=== PATIENT | female | born 1945 | race Caucasian/White ===

== ENCOUNTER 2019-07-09 17:05 | Inpatient (IN) | payer SELFPAY ==
[~2019-07-09] VITALS: Ht 167.6 cm; Wt 60.8 kg
--- NOTE | 2019-07-09 17:05 | NUR ---
Patient to ER bed 7 to gown for evaluation. Side rails up.
[2019-07-09 17:10] VITALS: BP_SYST 113
--- NOTE | 2019-07-09 17:10 | NUR ---
Patient presented to ER C/O diarrhea. Patient A&Ox3, BIB BLS from [facility], skin pink and warm, pain 10/18, denies n/v, PT C/O diarrhea. Patient states she has diarrhea x3 weeks, decreased appetite, chronic back and neck pain and bilat anterior hip pain.
[2019-07-09] MEDS ORDERED: NACL 0.9% 1,000 ML IV ONE (17:11)
--- NOTE | 2019-07-09 17:13 | NUR ---
ER Dr. Pettit at bedside examining patient.
--- NOTE | 2019-07-09 17:25 | NUR ---
# 20 gauge angiocath placed to right arm. Use of asceptic technique. Opsite placed over site. Blood return noted. Blood for lab drawn from site. Flushed with 10 cc of normal saline. No evidence of infiltration noted. Patient tolerated well. Medicated per MD orders. IVF infusing with no s/s of infiltration at this time. Will cont to monitor
--- NOTE | 2019-07-09 17:45 | NUR ---
# 16 FR In and Out catheter with use of sterile technique. Immediate return of ml urine noted. Urine sample collected and sent to lab. Pt tolerated procedure well. Patient unable to toilet self.
[2019-07-09 18:10] LABS: BASOPHILS % (AUTO) 0.2 % (0.0-2.0); EOSINOPHILS % (AUTO) 0.1 % (0.0-4.0); HEMATOCRIT 41.5 % (36-48); LYMPHOCYTES # (AUTO) 0.8 K/uL (1.0-5.5); LYMPHOCYTES % (AUTO) 6.2 % (20.5-51.5); MEAN CORPUSCULAR HEMOGLOBIN 29 pg (27-31); MEAN CORPUSCULAR HGB CONC 34 % (32-36); MEAN CORPUSCULAR VOLUME 86 fL (79.0-98.0); MONOCYTES # (AUTO) 1.7 K/uL (0.0-1.0); MONOCYTES % (AUTO) 13.4 % (1.7-9.3); NEUTROPHILS # (AUTO) 10.2 K/uL (1.8-7.7); NEUTROPHILS % (AUTO) 80.1 % (40.0-70.0); PLATELET COUNT (AUTO) 134 K/uL (130-430); RED CELL DISTRIBUTION WIDTH 14.9 % (9.0-15.0); WHITE BLOOD COUNT (AUTO) 12.7 K/uL (4.8-10.8)
[2019-07-09 18:29] LABS: BLOOD, URINE 2+ (NEGATIVE); COLOR,URINE YELLOW (YELLOW); GLUCOSE,URINE NEGATIVE (NEGATIVE); KETONES,URINE NEGATIVE (NEGATIVE); LEUKOCYTE ESTERASE ,URINE 2+ (NEGATIVE); NITRITE, URINE NEGATIVE (NEGATIVE); PROTEIN URINE 1+ (NEGATIVE)
[2019-07-09 18:33] LABS: BILIRUBIN,URINE NEGATIVE (NEGATIVE); CLARITY/URINE HAZY (CLEAR)
[2019-07-09 18:37] LABS: BACTERIA,URINE MODERATE /HPF (None Seen); MUCUS,URINE None Seen /LPF (None Seen); RBC,URINE 0-3 /HPF (0-3); WBC,URINE 50-80 /HPF (0-3)
[2019-07-09] MEDS ORDERED: cefTRIAXone 1 GM IVPB PREMIX 50 ML IV ONE (18:45)
[2019-07-09 19:09] LABS: ANION GAP 11 (5-15); CALCIUM 7.9 mg/dL (8.4-11.0); CHLORIDE 97 mmol/L (98-107); CREATININE 1.38 mg/dL (0.55-1.30); GLUCOSE 118 mg/dL (70-99); POTASSIUM 4.2 mmol/L (3.5-5.1); SODIUM SERUM 131 mmol/L (136-145); UREA NITROGEN, BLOOD 32 mg/dL (8-21)
--- NOTE | 2019-07-09 19:10 | NUR ---
Report to Abree RN continuity of care
[2019-07-09 19:11] LABS: ALANINE AMINOTRANSFERASE 20 U/L (12-78); ALBUMIN 3.1 g/dL (3.4-4.8); AMYLASE 37 U/L (0-100); ASPARTATE AMINOTRANSFERASE 23 U/L (10-37); LACTATE DEHYDROGENASE 143 U/L (81-234); LIPASE 67 U/L (73-393); TOTAL BILIRUBIN 0.7 mg/dL (0.0-1.0)
[2019-07-09 19:26] LABS: INR 1.3 (0.8-1.2); PROTHROMBIN TIME 13.4 SECS (9.5-12.5)
--- NOTE | 2019-07-09 19:27 | NUR ---
Rocephin IV therapy held until stool sample given. Patient states no urge at the moment.
--- NOTE | 2019-07-09 19:34 | NUR ---
RECEIEVED ADMIT ORDERS FROM DR. CALLEJAS.
[2019-07-09 19:40] LABS: C-REACTIVE PROTEIN QUANT 22.7 mg/dL (0-0.5)
--- NOTE | 2019-07-09 19:43 | NUR ---
Patient's code status is DNR paperwork completed, signed and placed in chart.
--- NOTE | 2019-07-09 20:15 | NUR ---
UPON REASSESSMENT OF PATIENT, SHE IS A&O X4, DENIES PAIN. VITAL SIGNS STABLE.
--- NOTE | 2019-07-09 20:30 | NUR ---
CALLED [facility] TO OBTAIN MED REC FOR PATIENT. PATIENT STATES SHE TAKES 6 MEDICATIONS DAILY BUT IS UNABLE TO RECALL THE NAME OF THE MEDICATIONS. WAITING FOR [facility] TO CALL BACK TO GIVE MED REC.
[2019-07-09] MEDS ORDERED: ONDANSETRON HCL 4 MG/2 ML VIAL IVP PRN (21:00)
[2019-07-09] MEDS ORDERED: HEPARIN SODIUM,PORCINE 5000 UNITS/ML VIAL SUBCUT SCH (21:00)
[2019-07-09] MEDS ORDERED: ACETAMINOPHEN 325 MG TABLET PO PRN (21:00)
[2019-07-09] MEDS: DOCUSATE SODIUM 100 MG CAPSULE PO SCH (21:00)
--- NOTE | 2019-07-09 21:11 | NUR ---
Patient will be admitted to care of DR. CALLEJAS. Admitted to TELE unit. Will go to room 122B. Belongings list completed. Complete and up to date summary report printed. SBAR report to be given at bedside with opportunity for questions.
--- NOTE | 2019-07-09 21:29 | NUR ---
PER MD, ROCEPHIN GIVEN IVPB PRIOR TO COLLECTION OF STOOL CULTURE. PATIENT UNABLE TO HAVE A BOWEL MOVEMENT AT THIS TIME.
[2019-07-09] MEDS ORDERED: METO25TA6 PO (21:30)
--- NOTE | 2019-07-09 21:30 | NUR ---
Medication reconciliation completed with information provided by HR PERSONNEL FROM [facility]. Any prior medication reconciliation on file was reviewed and corrected.
[2019-07-09] MEDS ORDERED: SERT50TA12 PO (21:31)
[2019-07-09] MEDS ORDERED: BENA40TA8 PO (21:31)
[2019-07-09] MEDS ORDERED: RIVA15TA PO (21:31)
[2019-07-09] MEDS ORDERED: DIGO-31 PO (21:32)
--- NOTE | 2019-07-09 21:32 | NUR ---
Transfer to TELE via ACLS protocol. Licensed nurse present. IV present no signs or symptoms of infiltration.
[2019-07-09 21:37] LABS: PHOSPHORUS 3.5 mg/dL (2.7-4.5); THYROID STIMULATING HORMONE 0.58 uIu/mL (0.36-3.74)
--- NOTE | 2019-07-09 21:44 | NUR ---
ADMISSION: The patient, PADMINI CARTER, 74 y/o, F admitted by DR COOPER ,WITH THE DIAGNOSIS OF UTI /R/O COVID , TO ROOM 122 B . PRIMARY RN IS AWARE.
[2019-07-09 22:00] VITALS: BP_SYST 146
[2019-07-09] MEDS: NACL 0.9% 1,000 ML IV SCH (22:00)
--- NOTE | 2019-07-09 23:30 | NUR ---
MISSING BELONGINGS UPON BELONGINGS CHECK, PATIENT VERBALIZED THAT SHE HAS PHONE. RN CHECKED THE BELONGINGS. NO PHONE NOTED IN HER BELONGINGS. KRISTEL STONER IN RE MADE AWARE TO CHECKED IF THE PHONE LEFT IN ER. [place] CALLED BACK, KRISTEL IVY RECEIVE THE CALL AND [place] VERBALIZED THAT THERE'S NO PHONE NOTED. [place] ALSO CALLED [facility] AND THE AMBULANCE, THEY SAID THAT NOT PHONE NOTED OR LEFT IN THE AMBULANCE AND IN THE [facility]. PATIENT MADE AWARE.
--- NOTE | 2019-07-09 23:45 | NUR ---
OPENING NOTES/ IV INFILTRATED PATIENT AWAKE AOX4. NO SIGNS OF RESPIRATORY DISTRESS AND DISCOMFORT NOTED. DENIES PAIN AND SOB AT THIS TIME. IV IN THE RIGHT FOREARM WAS INFILTRATED. CATHETER REMOVED AND INTACT. RE INSERTED IN THE LEFT FOREARM #22 G. PATIENT TOLERATED WELL, NO INFILTRATION NOTED AT THIS TIME, PATENCY NOTED. SCD'S OPERATING WELL. IVF INFUSING WELL. NEEDS ATTENDED. BED LOCKED AND IN LOWEST POSITION. BED ALARM ON. CALL LIGHT WITHIN REACH. PATIENT WAS EDUCATED TO USE CALL LIGHT WHEN NEEDS OF ASSISTANCE. PATIENT VERBALIZED UNDERSTANDING. SAFETY PRECAUTIONS IN PLACE. WILL CONTINUE TO MONITOR PATIENT.
[2019-07-10] VITALS: BP_SYST 129
--- NOTE | 2019-07-10 00:43 | NUR ---
RN ROUNDS VITAL SIGNS TAKEN AND RECORDED. PATIENT AWAKE, NO SIGNS OF RESPIRATORY DISTRESS AND DISCOMFORT NOTED. BREATHING EVEN AND UNLABORED. CALL LIGHT WITHIN REACH. SAFETY PRECAUTIONS IN PLACE. WILL CONTINUE TO MONITOR PATIENT
[2019-07-10] MEDS ORDERED: AZITHROMYCIN 500 MG/VIAL (ZITHROMAX) IV ONE (01:35)
[2019-07-10] MEDS: AZITHROMYCIN 500 MG in NS 250 ML IV SCH ×2 (01:44→22:10)
--- NOTE | 2019-07-10 02:31 | NUR ---
RN ROUNDS PATIENT ASLEEP AT THIS TIME. NO SIGNS OF RESPIRATORY DISTRESS AND DISCOMFORT NOTED. BREATHING EVEN AND UNLABORED. ON ROOM AIR TOLERATING WELL. IVF INFUSING WELL. SCD'S OPERATING WELL. CALL LIGHT WITHIN REACH. SAFETY PRECAUTIONS IN PLACE. WILL CONTINUE TO MONITOR PATIENT
--- NOTE | 2019-07-10 04:10 | NUR ---
KAYLAN CARE KAYLAN CARE AT THIS TIME, WATERY BOWEL MOVEMENT IS NOTED. UNABLE TO COLLECT STOOL SINCE STOOL WAS SATURATED IN THE CHUCKS. PATIENT HAS NO SIGNS OF RESPIRATORY DISTRESS AND DISCOMFORT NOTED. BREATHING EVEN AND UNLABORED. ON ROOM AIR TOLERATING WELL. SATURATING AT 100%. DENIES PAIN AND DISCOMFORT. IVF INFUSING WELL. REPOSITIONED PATIENT. CALL LIGHT WITHIN REACH. SAFETY PRECAUTIONS IN PLACE. WILL CONTINUE TO MONITOR PATIENT
--- NOTE | 2019-07-10 05:53 | NUR ---
CONSULTATION PAGED/CALLED Reason for Consultation: R/O COVID Person Who was Notified: DR GELLER Consulting Physician: CIARA Coil Former Specialty: Ordering Physician: ALLISON
--- NOTE | 2019-07-10 06:40 | NUR ---
CLOSING NOTES PATIENT ASLEEP AT THIS TIME. NO SIGNS OF RESPIRATORY DISTRESS AND DISCOMFORT NOTED. BREATHING EVEN AND UNLABORED. ON ROOM AIR TOLERATING WELL. IVF INFUSING WELL, PATENCY NOTED. BED LOCKED AND IN LOWEST POSITION. SCD'S OPERATING WELL. CALL LIGHT WITHIN REACH. ALL NEEDS MET THROUGHOUT THE SHIFT. WILL CONTINUE TO MONITOR UNTIL ENDORSE TO ONCOMING SHIFT NURSE FOR CONTINUITY OF CARE.
--- NOTE | 2019-07-10 07:01 | NUR ---
Nutrition Update Anthony Scale 17 noted. Pt admitted for UTI, R/O COVID-19 Diet: Regular BMI: 21.6 kg/m2 RD to follow per nutrition care standards.
[2019-07-10 07:47] LABS: ANION GAP 9 (5-15); CHLORIDE 94 mmol/L (98-107); CREATININE 1.12 mg/dL (0.55-1.30); GLUCOSE 97 mg/dL (70-99); POTASSIUM 3.8 mmol/L (3.5-5.1); SODIUM SERUM 127 mmol/L (136-145); UREA NITROGEN, BLOOD 26 mg/dL (8-21)
[2019-07-10 07:50] LABS: WHITE BLOOD COUNT (AUTO) 10.5 K/uL (4.8-10.8)
[2019-07-10 07:51] LABS: BASOPHILS % (AUTO) 0.1 % (0.0-2.0); EOSINOPHILS % (AUTO) 0.3 % (0.0-4.0); HEMATOCRIT 38.2 % (36-48); LYMPHOCYTES # (AUTO) 0.8 K/uL (1.0-5.5); MEAN CORPUSCULAR HEMOGLOBIN 30 pg (27-31); MEAN CORPUSCULAR HGB CONC 34 % (32-36); MEAN CORPUSCULAR VOLUME 87 fL (79.0-98.0); MONOCYTES # (AUTO) 1.4 K/uL (0.0-1.0); MONOCYTES % (AUTO) 13.3 % (1.7-9.3); NEUTROPHILS # (AUTO) 8.2 K/uL (1.8-7.7); NEUTROPHILS % (AUTO) 78.3 % (40.0-70.0); PLATELET COUNT (AUTO) 123 K/uL (130-430); RED BLOOD CELL COUNT(AUTO) 4.41 MIL/uL (4.2-6.2); RED CELL DISTRIBUTION WIDTH 14.7 % (9.0-15.0)
[2019-07-10 07:52] LABS: CHOLESTEROL 218 mg/dL (<200); HDL CHOLESTEROL 27 mg/dL (>55); LACTATE DEHYDROGENASE 158 U/L (81-234); LDL CHOLESTEROL 142 mg/dL (<100); TRIGLYCERIDES 172 mg/dL (30-150)
[2019-07-10 08:00] VITALS: BP_SYST 114
--- NOTE | 2019-07-10 08:30 | NUR ---
Notes- In bed awake and oriented. denies any chest pain or shortness of breath. on room air tolerated well, no cough. Has incontinent of watery stool. cleaned and change patient. IVF infusing well. Patient able to feed herself and take her meds without difficulty.Bed alarm on. Will monitor.
[2019-07-10 08:56] LABS: C-REACTIVE PROTEIN QUANT 7.2 mg/dL (0-0.5)
[2019-07-10] MEDS: NACL 0.9% 1,000 ML IV SCH ×2 (09:00→11:00)
[2019-07-10] MEDS: DOCUSATE SODIUM 100 MG CAPSULE PO SCH (09:00)
[2019-07-10 09:03] LABS: ERYTHROCYTE SEDIMENTATION RATE 82 MM/HR (0-20)
[2019-07-10] MEDS: LISINOPRIL 20 MG TABLET PO SCH (09:21)
[2019-07-10] MEDS: DIGOXIN 0.125 MG TABLET PO SCH (09:21)
[2019-07-10] MEDS: METOPROLOL TARTRATE 25 MG TABLET PO SCH ×2 (09:21→21:10)
[2019-07-10] MEDS: SERTRALINE HCL 50 MG TABLET PO SCH (09:22)
--- NOTE | 2019-07-10 09:23 | NUR ---
MD ROUNDS' Seen by Dr. Torres at bedside.
[2019-07-10 12:00] VITALS: BP_SYST 118
--- NOTE | 2019-07-10 12:16 | NUR ---
CONSULTATION PAGED REASON FOR CONSULTATION:DIARRHEA,IBS .WAS CONSULT CALLED?Y PERSON WHO WAS NOTIFIED:ZAKIA CONSULTING PHYSICIAN:LINDA CORONEL YARD BRAKEMAN SPECIALTY:GI YARD BRAKEMAN PHONE NUMBER:[phone] REQUESTING PHYSICIAN:RODDY HINKLE
--- NOTE | 2019-07-10 12:30 | NUR ---
Notes- Luncg provided, pt able to feed herself. Denies any pain or discomfort at this time. No acute distress noted. Remain in room air. tolerating well.
--- NOTE | 2019-07-10 15:00 | NUR ---
Notes- Talking on the phone. No acute distress noted.
[2019-07-10 16:21] VITALS: BP_SYST 116
--- NOTE | 2019-07-10 16:34 | NUR ---
MD ROUNDS Seen by Dr. Tobar at bedside.
[2019-07-10] MEDS ORDERED: methylPREDNISolone SOD SUCC 40 MG/ML VIAL IVP ONE (17:30)
[2019-07-10] MEDS ORDERED: FUROSEMIDE 40 MG/4 ML VIAL IVP SCH (18:00)
[2019-07-10] MEDS: RIVAROXABAN 15 MG TABLET PO SCH (18:36)
--- NOTE | 2019-07-10 18:38 | NUR ---
Notes- Eating in bed, instructed patient to call if she needs to have bowel movement coz we need stool sample. Patient verbalize understanding, she stated that she will try to hold it and will call. All needs meet through out shift. will endorse.
--- NOTE | 2019-07-10 19:30 | NUR ---
OPENING NOTES RECEIVED SBAR REPORT FROM DAY SHIFT RN. PT RESTING IN BED. BREATHING EVEN AND UNLABORED TO ROOM AIR. PT FRACISCO ANY PAIN AT THIS TIME. VSS. O2 SAT 98%. IVF RUNNING ORDERED RATE. SCD BILATERALLY. CALL LIGHT WITHIN REACH. SIDE RAILS X3. BED ALARM ON, LOCKED IN LOWEST LEVEL. SAFETY AND ISOLATION PRECAUTIONS IN PLACE. WILL MONITOR.
[2019-07-10 20:00] VITALS: BP_SYST 111
[2019-07-10] MEDS: LACTOBACILLUS RHAMNOSUS GG 1 CAP CAPSULE PO SCH (21:10)
[2019-07-10] MEDS: cefTRIAXone 1 GM IVPB PREMIX 50 ML IV SCH (21:10)
--- NOTE | 2019-07-10 21:10 | NUR ---
MEDICATION PASS SCHEDULED MEDICATIONS ADMINISTERED ORDERED. DISCUSSED MEDICATION ACTIONS AND POTENTIAL SIDE EFFECTS. PT VERBALIZED UNDERSTANDING. NO S/S OF DISTRESS OR SHORTNESS OF BREATH NOTED. IVF RUNNING ORDERED RATE. NO S/S OF INFILTRATION NOTED. CALL LIGHT WITHIN REACH. BED ALARM ON, LOCKED IN LOWEST LEVEL. SAFETY AND ISOLATION PRECAUTIONS IN PLACE. WILL CONTINUE TO MONITOR.
[2019-07-10] MEDS: metroNIDAZOLE 250 mg/NS 50 ML IV SCH (23:10)
--- NOTE | 2019-07-10 23:15 | NUR ---
HUNG FLAGYL HUNG FLAGYL ORDERED RATE. NO S/S OF ADVERSE REACTION NOTED. PT TOLERATING WELL. NO S/S OF DISTRESS NOTED. BREATHING UNLABORED TO ROOM AIR. SCD BILATERALLY. BED ALARM ON, LOCKED IN LOWEST POSITION. CALL LIGHT WITHIN REACH. SAFETY AND ISOLATION PRECAUTIONS MAINTAINED. WILL MONITOR.
[2019-07-11] VITALS: BP_SYST 104
--- NOTE | 2019-07-11 01:12 | NUR ---
RN ROUNDS PT RESTING IN BED, WATCHING TV. BREATHING EVEN AND UNLABORED TO ROOM AIR. IVF RUNNING ORDERED RATE. SCD BILATERALLY. CALL LIGHT WITHIN REACH. SIDE RAILS X3. BED ALARM ON, LOCKED IN LOWEST LEVEL. SAFETY AND ISOLATION PRECAUTIONS IN PLACE. WILL MONITOR.
--- NOTE | 2019-07-11 03:15 | NUR ---
RESTING PT RESTING IN BED WITH EYES CLOSED. BREATHING UNLABORED TO ROOM AIR. NO S/S OF ACUTE DISTRESS NOTED. BED ALARM ON, LOCKED IN LOWEST POSITION. SIDE RAILS X3. CALL LIGHT WITHIN REACH. SAFETY, FALL, AND ISOLATION PRECAUTIONS IN PLACE. WILL CONTINUE TO MONITOR.
[2019-07-11] MEDS: NACL 0.9% 1,000 ML IV SCH ×3 (03:30→23:30)
--- NOTE | 2019-07-11 05:50 | NUR ---
HUNG FLAGYL HUNG FLAGYL ORDERED RATE. PT TOLERATING WELL. NO S/S OF ADVERSE REACTION NOTED AT THIS TIME. BREATHING EASY AND UNLABORED TO ROOM AIR. CALL LIGHT WITHIN REACH. SIDE RAILS X2. SAFETY AND ISOLATION PRECAUTIONS IN PLACE. WILL CONTINUE TO MONITOR.
[2019-07-11] MEDS: metroNIDAZOLE 250 mg/NS 50 ML IV SCH ×3 (06:00→22:54)
--- NOTE | 2019-07-11 06:38 | NUR ---
CLOSING NOTES/INCONTINENCE CARE PT RESTING IN BED. PROVIDED INCONTINENCE CARE. PT TOLERATED WELL. BREATHING EVEN AND UNLABORED TO ROOM AIR. PT FRACISCO ANY PAIN AT THIS TIME. IVF RUNNING ORDERED RATE. SCD BILATERALLY. CALL LIGHT WITHIN REACH. SIDE RAILS X3. BED ALARM ON, LOCKED IN LOWEST LEVEL. ALL NEEDS ARE MET THROUGHOUT SHIFT. SAFETY AND ISOLATION PRECAUTIONS IN PLACE. WILL MONITOR UNTIL ENDORSE TO DAY SHIFT RN.
[2019-07-11 06:58] LABS: BASOPHILS % (AUTO) 0.3 % (0.0-2.0); EOSINOPHILS # (AUTO) 0.1 K/uL (0.0-0.4); EOSINOPHILS % (AUTO) 1.3 % (0.0-4.0); HEMATOCRIT 36.9 % (36-48); HEMOGLOBIN 12.5 g/dL (12.0-16.0); LYMPHOCYTES # (AUTO) 1.3 K/uL (1.0-5.5); LYMPHOCYTES % (AUTO) 15.1 % (20.5-51.5); MEAN CORPUSCULAR HEMOGLOBIN 30 pg (27-31); MEAN CORPUSCULAR HGB CONC 34 % (32-36); MEAN CORPUSCULAR VOLUME 87 fL (79.0-98.0); MONOCYTES # (AUTO) 1.2 K/uL (0.0-1.0); MONOCYTES % (AUTO) 14.4 % (1.7-9.3); NEUTROPHILS % (AUTO) 68.9 % (40.0-70.0); PLATELET COUNT (AUTO) 132 K/uL (130-430); RED BLOOD CELL COUNT(AUTO) 4.25 MIL/uL (4.2-6.2); RED CELL DISTRIBUTION WIDTH 14.4 % (9.0-15.0); WHITE BLOOD COUNT (AUTO) 8.7 K/uL (4.8-10.8)
[2019-07-11 07:15] LABS: ANION GAP 5 (5-15); CALCIUM 8.4 mg/dL (8.4-11.0); CHLORIDE 105 mmol/L (98-107); CREATININE 0.98 mg/dL (0.55-1.30); DIGOXIN 0.6 ng/mL (0.80-2.00); GLUCOSE 103 mg/dL (70-99); LACTATE DEHYDROGENASE 155 U/L (81-234); POTASSIUM 3.9 mmol/L (3.5-5.1); SODIUM SERUM 135 mmol/L (136-145); UREA NITROGEN, BLOOD 19 mg/dL (8-21)
--- NOTE | 2019-07-11 07:25 | NUR ---
OPENING NOTE Patient resting in the bed. No acute distress. AAO x 4. Denied of pain. Skin warm and dry to touch. IV intact to LFA, no redness, no swelling, no drainage. On NS at 100ml/hr, infusing well. Discussed the safety issue, use call light when needs help, and plan of care, verbally understanding. Safety measure maintained. Call light within reached. Bed locked in low position, side rails up, bed alarm on. Will continue to monitor.
[2019-07-11 07:41] LABS: ERYTHROCYTE SEDIMENTATION RATE 87 MM/HR (0-20)
[2019-07-11 07:50] VITALS: BP_SYST 115
[2019-07-11 08:07] LABS: C-REACTIVE PROTEIN QUANT 19.4 mg/dL (0-0.5)
[2019-07-11 08:44] LABS: FIBRINOGEN 729 mg/dL (200-400)
[2019-07-11] MEDS ORDERED: methylPREDNISolone SOD SUCC 40 MG/ML VIAL IVP SCH (09:00)
--- NOTE | 2019-07-11 09:02 | NUR ---
SEEN AND EXAMINED BY LINDA MARINO WITH ORDER RECEIVED.
[2019-07-11] MEDS: LACTOBACILLUS RHAMNOSUS GG 1 CAP CAPSULE PO SCH ×2 (09:34→20:39)
[2019-07-11] MEDS: METOPROLOL TARTRATE 25 MG TABLET PO SCH ×2 (09:35→20:39)
[2019-07-11] MEDS: DIGOXIN 0.125 MG TABLET PO SCH (09:35)
[2019-07-11] MEDS: LISINOPRIL 20 MG TABLET PO SCH (09:35)
[2019-07-11] MEDS: SERTRALINE HCL 50 MG TABLET PO SCH (09:36)
[2019-07-11] MEDS ORDERED: DIATR MEGLU/DIATRIZ SOD 30 ML SOLUTION PO ONE (10:19)
--- NOTE | 2019-07-11 10:59 | NUR ---
CONSENT SIGNED FOR CT ABDOMEN/PELVIS WITH CONTRAST BY PATIENT.
--- NOTE | 2019-07-11 11:14 | NUR ---
SEEN AND EXAMINED BY EDYTA GIL. Addendum: 07/11/19 at 1117 by Tod Escobar RN TYPING ERROR IT SHOULD BE EDYTA CABRERA.
--- NOTE | 2019-07-11 11:32 | NUR ---
SS Note Patient is uninsured. Apparently, she has had Medicare and possibly [employer] in the past. She is a resident of [facility]. Her friend, America [phone], phoned and left a message this morning. Phoned her back and left a voicemail message. As per Yisel in Admitting, patient has been referred to Alli with [employer] for [employer] application. Need to determine what happened to Medicare insurance. Will remain available.
--- NOTE | 2019-07-11 11:38 | NUR ---
SEEN AND EXAMINED BY DR. CHRIS [facility].
--- NOTE | 2019-07-11 11:41 | NUR ---
Dietitian Recommendations *Recommend Cardiac Low CHOL, Low Fat 2gm Na diet w/ Banatrol TID. *Consider ONS if PO intake is <75%. Please see Nutritional Assessment for details. BARRERA AVILA Addendum: 07/11/19 at [address] BARRERA left message at 's answering service. BARRERA s/mary Anthony and is a/w 's call back for RD rec. BARRERA AVILA Addendum: 07/11/19 at [address] BARRERA received call back from Dr. Kirby, who is covering for Dr. Merritt. And MD hernández'd BARRERA's rec. BARRERA to put order in for Banatrol. BARRERA AVILA
[2019-07-11] MEDS ORDERED: IOHEXOL 100 ML IV ONE (11:48)
[2019-07-11 12:00] VITALS: BP_SYST 119
--- NOTE | 2019-07-11 12:10 | NUR ---
DIARRHEA Patient had diarrhea. Good perirectal/perineal care provided. Will sent the ample to lab.
--- NOTE | 2019-07-11 13:44 | NUR ---
OFF UNIT TO CT ABDOMEN/PELVIS VIA WHEELCHAIR IN STABLE CONDITION.
--- NOTE | 2019-07-11 13:57 | NUR ---
BACK FROM CT ABDOMEN/PELVIS VIA WHEELCHAIR IN STABLE CONDITION.
[2019-07-11 16:00] VITALS: BP_SYST 120
--- NOTE | 2019-07-11 16:20 | NUR ---
ROUND Patient resting in the bed and watching TV. No acute distress. IV intact, IVF infusing well. Safety measure maintained. Call light within reached. Bed locked in low position, side rails up. Isolation maintained. Continue to monitor.
[2019-07-11] MEDS: RIVAROXABAN 15 MG TABLET PO SCH (18:06)
--- NOTE | 2019-07-11 18:58 | NUR ---
CLOSING NOTE Patient resting in the bed. No acute distress. AAO x 4. Denied of pain. Skin warm and dry to touch. IV intact to LFA, no redness, no swelling, no drainage. On NS at 100ml/hr, infusing well. All needs met. Isolation maintained. Safety measure maintained. Call light within reached. Bed locked in low position, side rails up, bed alarm on. Will endorse to night nurse.
--- NOTE | 2019-07-11 19:30 | NUR ---
Opening Notes Patient is sitting up in bed. Breathing is even and unlabored, no signs of distress noted. Patient is on room air and tolerating well. 22G to the left forearm is patent and infusing fluids per orders. Commode is at the bedside. Patient does not have any needs at this time. Bed is locked in the lowest position with call light within reach. Bed alarm is on. Fall and safety precautions are in place. COVID- contact and airborne precautions are in place.
[2019-07-11 20:00] VITALS: BP_SYST 122
[2019-07-11] MEDS: cefTRIAXone 1 GM IVPB PREMIX 50 ML IV SCH (20:39)
--- NOTE | 2019-07-11 20:40 | NUR ---
Medications Administered scheduled medications at this time. Educated patient on purpose and side effects of given medications. Patient verbalized an understanding. Patient tolerated admin well. Cleaned and repositioned patient at this time. Incontinent urine x1. No other needs at this time. Bed is locked in the lowest position with call light within reach. Bed alarm is on. Fall and safety precautions are in place
[2019-07-11] MEDS: AZITHROMYCIN 500 MG in NS 250 ML IV SCH (21:36)
--- NOTE | 2019-07-11 22:50 | NUR ---
Medication Administered scheduled medication at this time. Educated patient on purpose and side effects of given medications. Patient verbalized an understanding. IV ABX infusing. No other needs at this time. Bed is locked in the lowest position with call light within reach. Bed alarm is on. Fall and safety precautions are in place
[2019-07-11 23:51] VITALS: BP_SYST 132
[2019-07-11] MEDS: HYDROcodone/ACETAMIN 5-325 MG TAB (NORCO/ VICODIN) PO PRN (23:54)
--- NOTE | 2019-07-12 00:11 | NUR ---
PRN Pain Medication/ Vitals Vitals signs taken and stable at this time. Administered PRN pain medication at this time. Educated patient on purpose and side effects of given medication. Patient verbalized an understanding. Patient tolerated admin well. Cleaned and repositioned patient at this time. patient had loose bowel movement in bedside commode. Patient back to bed safely. No other needs at this time. Bed is locked in the lowest position with call light within reach. Bed alarm is on. Fall and safety precautions are in place
--- NOTE | 2019-07-12 02:21 | NUR ---
RN Rounds Patient is resting in bed with eyes closed. Breathing is even and unlabored. No signs of distress noted. O2 saturation is at 98% on room air. Patient does not have any needs at this moment. Bed is locked in the lowest position with call light within reach. Bed alarm is on. Fall and safety precautions are in place
[2019-07-12] MEDS: NACL 0.9% 1,000 ML IV SCH ×2 (04:33→16:27)
--- NOTE | 2019-07-12 04:35 | NUR ---
RN Rounds Patient is resting in bed. Breathing is even and unlabored. No signs of distress noted. Patient called, IV beeping. RN replaced IV fluids and infusing per orders. No other needs at this time. Bed is locked in the lowest position with call light within reach. Bed alarm is on. Fall and safety precautions are in place.
[2019-07-12] MEDS: metroNIDAZOLE 250 mg/NS 50 ML IV SCH ×3 (06:15→21:57)
[2019-07-12 06:34] LABS: BASOPHILS % (AUTO) 0.2 % (0.0-2.0); EOSINOPHILS # (AUTO) 0.1 K/uL (0.0-0.4); EOSINOPHILS % (AUTO) 1.9 % (0.0-4.0); HEMATOCRIT 34.3 % (36-48); HEMOGLOBIN 11.8 g/dL (12.0-16.0); LYMPHOCYTES # (AUTO) 1.3 K/uL (1.0-5.5); LYMPHOCYTES % (AUTO) 16.3 % (20.5-51.5); MEAN CORPUSCULAR HEMOGLOBIN 30 pg (27-31); MEAN CORPUSCULAR HGB CONC 35 % (32-36); MEAN CORPUSCULAR VOLUME 87 fL (79.0-98.0); MONOCYTES # (AUTO) 0.8 K/uL (0.0-1.0); MONOCYTES % (AUTO) 10.3 % (1.7-9.3); NEUTROPHILS # (AUTO) 5.5 K/uL (1.8-7.7); NEUTROPHILS % (AUTO) 71.3 % (40.0-70.0); PLATELET COUNT (AUTO) 148 K/uL (130-430); RED BLOOD CELL COUNT(AUTO) 3.96 MIL/uL (4.2-6.2); RED CELL DISTRIBUTION WIDTH 14.7 % (9.0-15.0); WHITE BLOOD COUNT (AUTO) 7.8 K/uL (4.8-10.8)
[2019-07-12 06:45] LABS: ALANINE AMINOTRANSFERASE 25 U/L (12-78); ALBUMIN 2.4 g/dL (3.4-4.8); ANION GAP 7 (5-15); ASPARTATE AMINOTRANSFERASE 22 U/L (10-37); C-REACTIVE PROTEIN QUANT 11.5 mg/dL (0-0.5); CALCIUM 7.8 mg/dL (8.4-11.0); CHLORIDE 109 mmol/L (98-107); CREATININE 0.86 mg/dL (0.55-1.30); GLUCOSE 105 mg/dL (70-99); POTASSIUM 3.4 mmol/L (3.5-5.1); SODIUM SERUM 139 mmol/L (136-145); TOTAL BILIRUBIN 0.3 mg/dL (0.0-1.0); UREA NITROGEN, BLOOD 12 mg/dL (8-21)
[2019-07-12 07:00] LABS: INR 1.2 (0.8-1.2)
--- NOTE | 2019-07-12 07:01 | NUR ---
Closing Notes Patient is sitting up in bed. Breathing is even and unlabored, no signs of distress noted. Patient is on room air and tolerating well, O2 98%. 22G to the left forearm is patent and infusing fluids per orders. Commode is at the bedside. Patient was cleaned and repositioned at this time. All needs met throughout shift. Bed is locked in the lowest position with call light within reach. Bed alarm is on. Fall and safety precautions are in place. COVID- contact and airborne precautions are in place. Telemetry and oxygen saturation monitoring in place. Will endorse care to dayshift RN
--- NOTE | 2019-07-12 07:22 | NUR ---
OPENING NOTE Patient resting in the bed. No acute distress. AAO x 4. Denied of pain. Skin warm and dry to touch. IV intact to LFA, no redness, no swelling, no drainage. On NS at 100ml/hr, infusing well. Discussed the safety issue, use call light when needs help, and plan of care, verbally understanding. Safety measure maintained. Bed locked in low position, side rails up, bed alarm on. Call light within reached. Will continue to monitor.
[2019-07-12 07:55] VITALS: BP_SYST 138
[2019-07-12 08:25] LABS: ERYTHROCYTE SEDIMENTATION RATE 80 MM/HR (0-20)
--- NOTE | 2019-07-12 08:54 | NUR ---
SEEN AND EXAMINED BY LINDA MARINO WITH ORDER RECEIVED.
[2019-07-12] MEDS ORDERED: POTASSIUM CHLORIDE 20 MEQ TAB.PRT.SR PO ONE (09:00)
--- NOTE | 2019-07-12 09:12 | NUR ---
CONFIRMED WITH LAB, STOOL C-DIFF ONLY EVERY 7 DAYS. STOOL FOR OVAL AND PARASITE SPECIMEN SENT YESTERDAY, RESULT PENDING. LINDA MARINO INFORMED. COVID RESULT NEGATIVE, PER DR. WHALEY WILL DO COLONOSCOPY TOMORROW, AND HOLD XARELTO TODAY.
--- NOTE | 2019-07-12 09:18 | NUR ---
SEEN AND EXAMINED BY DR. CHRIS [facility] Reported to Dr. Chris, patient's K=3.[address] Chris with order of potassium and DC isolation.
[2019-07-12] MEDS: LACTOBACILLUS RHAMNOSUS GG 1 CAP CAPSULE PO SCH ×2 (09:46→21:57)
[2019-07-12] MEDS: LISINOPRIL 20 MG TABLET PO SCH (09:46)
[2019-07-12] MEDS: SERTRALINE HCL 50 MG TABLET PO SCH (09:47)
[2019-07-12] MEDS: DIGOXIN 0.125 MG TABLET PO SCH (09:47)
[2019-07-12] MEDS: METOPROLOL TARTRATE 25 MG TABLET PO SCH ×2 (09:47→21:00)
--- NOTE | 2019-07-12 09:54 | NUR ---
COLONOSCOPY CONSENT SIGNED. PER PATIENT DR. WHALEY EXPLAINED THE PROCEDURE TO HER, VERBALLY UNDERSTANDING.
[2019-07-12 12:10] VITALS: BP_SYST 130
[2019-07-12] MEDS: HYDROcodone/ACETAMIN 5-325 MG TAB (NORCO/ VICODIN) PO PRN (12:19)
--- NOTE | 2019-07-12 12:20 | NUR ---
NORCO 5/325MG GIVEN Patient c/o back pain 06/17, [place] 5/325mg 1 tab PO given as ordered. Patient no acute distress. Safety measure maintained. Call light within reached. Continue to monitor.
--- NOTE | 2019-07-12 14:25 | NUR ---
ROUND Patient resting in the bed and talking via phone. IV intact, IVF infusing well. Safety measure maintained. Call light within reached. Bed locked in low position, side rails up, bed alarm on. Continue to monitor.
[2019-07-12 16:00] VITALS: BP_SYST 140
--- NOTE | 2019-07-12 16:20 | NUR ---
ROUND Patient resting in the bed and watching TV. IV intact, IVF infusing well. Safety measure maintained. Call light within reached. Bed locked in low position, side rails up, bed alarm on. Continue to monitor.
[2019-07-12] MEDS ORDERED: BISACODYL 5 MG TABLET.DR (DULCOLAX) PO ONE (17:00)
--- NOTE | 2019-07-12 17:15 | NUR ---
HANDS OFF Report and SBAR given to KRISTEL Nicole. Patient transferred to [address] via wheelchair in stable condition with tele box. Patient resting in the bed. No acute distress. Skin warm and dry to touch. IV intact to LFA, no redness, no swelling, no drainage. On NS at 100ml/hr, infusing well. Safety measure maintained. Call light within reached. Bed locked in low position, side rails up, bed alarm on. Hands off to Bonnie.
--- NOTE | 2019-07-12 17:30 | NUR ---
Received report from JOSE HUMPHRIES. patient alert, awake, orientedx4 denies pain and discomfort.updated about the poc. verbalized understanding. pt scheduled for EGD and Colonoscopy 8 am. will start prep. ivf infusing well. patent. call light within reach. bedside commode at the side. will monitor.
[2019-07-12] MEDS ORDERED: GOLYTELY / COLYTE SOLUTION 4 LITERS PO ONE (18:00)
--- NOTE | 2019-07-12 18:38 | NUR ---
patient had moderate amount of loose bowel movement greenish color output. assisted to cleaned then back to the bed. encourage to call for assistance when needed.
--- NOTE | 2019-07-12 19:15 | NUR ---
OPENING NOTE: Patient is awake at this time, AOx4. No s/s of acute distress noted. Breathing is even and unlabored. IVF are infusing well. IV site without s/s of infiltration or infection noted. SCDs are attached and operating. Bed locked in lowest position, call light with patient. Patient asleep at this time, but I will educated patient on importance and use of call light when she awakens. Patient encouraged to drink Golytely and will continue encourage throughout the shift. Will continue to monitor.
[2019-07-12 20:00] VITALS: BP_SYST 102
--- NOTE | 2019-07-12 21:14 | NUR ---
GOLYTELY: Golytely is 1/2 done at this time. Patient is tolerating well. No s/s of acute distress noted. No other needs at this time. Bed locked in lowest position. Bed alarm not indicated as patient is ambulatory to the bedside commode without assistance. Call light is with patient. Will continue to monitor.
--- NOTE | 2019-07-12 23:12 | NUR ---
KAYLAN CARE/LINEN CHANGE: Kaylan care and linen change completed at this time by INSTRUMENT REPAIR SPECIALIST. Patient tolerated well. No s/s of acute distress noted. All needs met at this time. Bed locked in lowest position, call light with patient. Will continue to monitor.
[2019-07-13 00:17] VITALS: BP_SYST 151
--- NOTE | 2019-07-13 01:00 | NUR ---
GOLYTELY COMPLETE/NPO: Patient completed Golytely and has been made NPO to prep for colonoscopy tomorrow morning at 0800. Patient tolerated well. No s/s of acute distress noted. No new needs at this time. Will continue to monitor.
--- NOTE | 2019-07-13 03:02 | NUR ---
ROUNDS: Patient is resting at this time. No s/s of acute distress noted. Breathing is even and unlabored. No new needs at this time. Bed locked in lowest position, call light with patient. Will continue to monitor.
[2019-07-13] MEDS: NACL 0.9% 1,000 ML IV SCH (04:15)
[2019-07-13] MEDS: metroNIDAZOLE 250 mg/NS 50 ML IV SCH (05:05)
--- NOTE | 2019-07-13 05:13 | NUR ---
TAP WATER ENEMA: Tap water enema done at this time. Patient tolerated approximately 800mL. Patient assisted to bedside commode. Output is now clear yellow with minimal residue. Residue consistency the same x2. Patient without s/s of acute distress. Breathing is even and unlabored. Pricilla care provided. Patient assisted back to bed. Patient is now resting. No new needs at this time. Bed locked in lowest position, call light with patient. Will continue to monitor.
[2019-07-13 05:23] LABS: ANION GAP 6 (5-15); CALCIUM 8.2 mg/dL (8.4-11.0); CHLORIDE 105 mmol/L (98-107); CREATININE 0.79 mg/dL (0.55-1.30); GLUCOSE 98 mg/dL (70-99); POTASSIUM 3.3 mmol/L (3.5-5.1); SODIUM SERUM 137 mmol/L (136-145); UREA NITROGEN, BLOOD 6 mg/dL (8-21)
[2019-07-13 05:35] LABS: INR 1.1 (0.8-1.2); PROTHROMBIN TIME 11.3 SECS (9.5-12.5)
[2019-07-13 06:13] LABS: BASOPHILS % (AUTO) 0.3 % (0.0-2.0); EOSINOPHILS # (AUTO) 0.2 K/uL (0.0-0.4); HEMATOCRIT 33.4 % (36-48); HEMOGLOBIN 11.5 g/dL (12.0-16.0); LYMPHOCYTES # (AUTO) 1.4 K/uL (1.0-5.5); LYMPHOCYTES % (AUTO) 17.7 % (20.5-51.5); MEAN CORPUSCULAR HEMOGLOBIN 30 pg (27-31); MEAN CORPUSCULAR HGB CONC 34 % (32-36); MEAN CORPUSCULAR VOLUME 86 fL (79.0-98.0); MONOCYTES # (AUTO) 0.7 K/uL (0.0-1.0); MONOCYTES % (AUTO) 9.5 % (1.7-9.3); NEUTROPHILS # (AUTO) 5.5 K/uL (1.8-7.7); NEUTROPHILS % (AUTO) 70.5 % (40.0-70.0); PLATELET COUNT (AUTO) 168 K/uL (130-430); RED BLOOD CELL COUNT(AUTO) 3.87 MIL/uL (4.2-6.2); RED CELL DISTRIBUTION WIDTH 14.6 % (9.0-15.0); WHITE BLOOD COUNT (AUTO) 7.8 K/uL (4.8-10.8)
--- NOTE | 2019-07-13 06:15 | NUR ---
CLOSING NOTE: Patient is awake at this time, AOx4. No s/s of acute distress noted. Breathing is even and unlabored. IVF are infusing well. IV site without s/s of infiltration or infection noted. SCDs refused by patient because she is is in and out of bed due to [place] and tap water enema. Patient educated on use of SCDs, will continue to encourage use throughout shift when she feels more comfortable. All fall/safety precautions maintained throughout the shift. All needs met throughout the shift. Will continue to monitor until endorsement of care to dayshift nurse.
[2019-07-13 07:30] VITALS: BP_SYST 138
--- NOTE | 2019-07-13 07:30 | NUR ---
Opening note/Patient off the unit patient resting in bed, a/ox4, denies pain, assisted to bedside commode, patient voided, assisted back into bed, vital signs taken, assessment complete, IV line is patent and infusing well, patient educated on plan of care and call light system and to call for any assistance, she verbalized understanding, patient off the unit to GI lab via wheelchair, stable.
[2019-07-13] MEDS ORDERED: MEPERIDINE HCL/PF 25 MG/ML DISP.SYRIN ONE ×2 (07:39→08:49)
[2019-07-13] MEDS ORDERED: SIMETHICONE 40 MG/0.6 ML ML ONE ×2 (07:40→13:54)
[2019-07-13] MEDS ORDERED: MIDAZOLAM HCL 5 MG/5 ML VIAL ONE ×2 (07:40→13:54)
[2019-07-13] MEDS ORDERED: LISINOPRIL 20 MG TABLET PO SCH (09:00)
[2019-07-13] MEDS ORDERED: SERTRALINE HCL 50 MG TABLET PO SCH (09:00)
[2019-07-13] MEDS ORDERED: DIGOXIN 0.125 MG TABLET PO SCH (09:00)
[2019-07-13] MEDS ORDERED: POTASSIUM CHLORIDE 20 MEQ TAB.PRT.SR PO ONE (09:30)
[2019-07-13 09:45] VITALS: BP_SYST 124
--- NOTE | 2019-07-13 09:45 | NUR ---
Patient back on the unit vital signs taken, stable condition.
--- NOTE | 2019-07-13 09:50 | NUR ---
Dr. Kirby rounds assessed patient, answered her questions, will follow up with any new orders.
[2019-07-13] MEDS: LACTOBACILLUS RHAMNOSUS GG 1 CAP CAPSULE PO SCH (09:52)
[2019-07-13] MEDS: METOPROLOL TARTRATE 25 MG TABLET PO SCH (09:52)
--- NOTE | 2019-07-13 09:57 | NUR ---
Medication patient resting in bed, awake, denies pain, educated on medications uses and potential side effects, she verbalized understanding and tolerated well, educated on plan of care again, she verbalized understanding, call light placed within reach, fall and aspiration precautions in place, bed alarm on, bed close to nursing station.
--- NOTE | 2019-07-13 10:30 | NUR ---
Attempt to call out operator to notify America Moore [phone] - to notify of discharge today - left voicemail, will attempt again.
[2019-07-13 10:42] VITALS: BP_SYST 140
--- NOTE | 2019-07-13 12:08 | NUR ---
Attempt to weight caller to notify America Moore [phone] - to notify of discharge today - left voicemail, will attempt again.
--- NOTE | 2019-07-13 12:25 | NUR ---
Called [facility] to inquire about transportation in case the patient's person to notify is not available - no answer from person to notify yet at this time. There is not transportation available from the assisted living.
[2019-07-13 12:59] VITALS: BP_SYST 146
--- NOTE | 2019-07-13 13:45 | NUR ---
Attempt to call manager to notify America Moore [phone] - to notify of discharge today - left voicemail, will attempt again.
--- NOTE | 2019-07-13 13:47 | NUR ---
Called Case Management to assist with transportation for the patient, will follow up as needed. Addendum: 07/13/19 at 1359 by Shiraz Blair RN Per Case Management - the patient will be picked up by the assisted living transportation at 3pm today, will follow up.
[2019-07-13] MEDS ORDERED: MEPERIDINE HCL/PF 50 MG/ML AMP ONE (13:54)
--- NOTE | 2019-07-13 14:04 | NUR ---
WE[employer]ER [employer] SCIENTIST received call from Pt's person to notify friend America regarding call she received regarding picking up patient, she stated that she spoke with [facility] yesterday and they had confirmed with her that they would be transporting Pt back due to visitor- social distancing guidelines for COVID19. She is not able to provide transportation. WE[employer]ER [employer] SCIENTIST contacted [facility] [phone], spoke with nurse Hendricks, made aware transportation needs to be arranged for Pt. back to facility and friend had received confirmation yesterday. Nurse Hendricks indicated that Pt. would be picked up in an hour form [facility]. Transpiration through [facility] confirmed. Left Voice Mail for America that [facility] agreed to provide transportation for PT.
--- NOTE | 2019-07-13 15:10 | NUR ---
Discharge paperwork provided and explained to the patient, IV lines removed, patient prepared for pickler helper.
--- NOTE | 2019-07-13 15:46 | NUR ---
A f/u call was made to [facility], ([facility]), re: transportation back to [facility]. Spoke to Ruthie.
--- NOTE | 2019-07-13 15:50 | NUR ---
D/C Patient Patient given medication reconciliation form and D/C instructions. Exit Care provided. Patient verbalized understanding. MD discussed with patient the results and treatment provided. Ambulatory for discharge to home. Patient in stable condition, ID band removed. IV catheter removed, intact and dressing applied, no active bleeding. Patient educated on pain management. All belongings sent with patient.
[2019-07-13 16:00] VITALS: BP_SYST 141
== END 2019-07-13 15:50 | disposition home or self-care (01) | DRG 690 ==
LOC: SED 17:05 → EEVIPCON 19:34 → STU 19:34
PROVIDERS: ADMIT Student in an Organized Health Care Education/Training Program; ATTEND Student in an Organized Health Care Education/Training Program
PROC: 0DBB8ZX Excision of Ileum, Via Natural or Artificial Opening Endoscopic, Diagnostic (ICD-10-PCS; 2019-07-13)
PROC: 0DB98ZX Excision of Duodenum, Via Natural or Artificial Opening Endoscopic, Diagnostic (ICD-10-PCS; principal; 2019-07-13 08:00)
PROC: 0DB68ZX Excision of Stomach, Via Natural or Artificial Opening Endoscopic, Diagnostic (ICD-10-PCS; 2019-07-13 08:00)
DX: N39.0 Urinary tract infection, site not specified (principal); E87.1 Hypo-osmolality and hyponatremia; I48.20 Chronic atrial fibrillation, unspecified; Z16.29 Resistance to other single specified antibiotic; K58.0 Irritable bowel syndrome with diarrhea; K29.70 Gastritis, unspecified, without bleeding; K64.8 Other hemorrhoids; B96.20 Unspecified Escherichia coli [E. coli] as the cause of diseases classified elsewhere; E87.6 Hypokalemia; F02.80 Dementia in other diseases classified elsewhere, unspecified severity, without behavioral disturbance, psychotic disturbance, mood disturbance, and anxiety; F32.9 Major depressive disorder, single episode, unspecified; F41.9 Anxiety disorder, unspecified; F70 Mild intellectual disabilities; G30.9 Alzheimer's disease, unspecified; I10 Essential (primary) hypertension; E86.0 Dehydration; Z20.828 Contact with and (suspected) exposure to other viral communicable diseases; Z79.01 Long term (current) use of anticoagulants; Z90.710 Acquired absence of both cervix and uterus
CPT/HCPCS: 36415; 36600; 71045; 80048; 80053; 80061; 80162-TC; 81000-TC; 82150-TC; 82550-TC; 82728; 82803-TC; 83036; 83605; 83615-TC; 83690-TC; 83735-TC; 83880; 84100-TC; 84443-TC; 84484; 85025; 85379; 85384-TC; 85610-TC; 85651-TC; 85730-TC; 86140; 87040-TC; 87045-TC; 87081; 87086; 87177; 87186-TC; 87230-TC; 88305; 88312; 88313; 89055; 93005; 96361; 96365; 99291; G0378; J0456; J0696; J1030; J1940; J2175; J2250; J3490; J7030; J7050; Q9964; Q9967; U0003-CS

== ENCOUNTER 2019-09-18 13:17 | Emergency (ER) | payer MEDICARE, SELFPAY ==
[~2019-09-18] VITALS: Ht 167.6 cm; Wt 59.0 kg
[~2019-09-18 13:17] MED LIST: BENA40TA8 PO; DIGO-31 PO; METO25TA6 PO; RIVA15TA PO; SERT50TA12 PO
[2019-09-18 13:23] VITALS: BP_SYST 131
[2019-09-18] MEDS ORDERED: KETOROLAC TROMETHAMINE 60 MG/2 ML VIAL IM ONE (14:00)
[2019-09-18] MEDS ORDERED: cefTRIAXone 1 GM VIAL IM ONE (14:00)
[2019-09-18] MEDS ORDERED: LIDOCAINE 1%, 20 ML MDV 20 ML ONE (14:15)
[2019-09-18 15:55] VITALS: BP_SYST 127
== END 2019-09-18 15:55 | disposition home or self-care (01) ==
LOC: SED 13:17
DX: N39.0 Urinary tract infection, site not specified (principal); M16.11 Unilateral primary osteoarthritis, right hip; I10 Essential (primary) hypertension; Z79.899 Other long term (current) drug therapy
CPT/HCPCS: 73502; 96372; 99284; J0696; J1885; J2001

== ENCOUNTER 2019-12-04 09:59 | Emergency (ER) | payer MEDICARE ==
[~2019-12-04] VITALS: Ht 167.6 cm; Wt 61.2 kg
[2019-12-04 10:10] VITALS: BP_SYST 159
--- NOTE | 2019-12-04 10:10 | NUR ---
Patient to ER bed 4 to gown for evaluation. Side rails up. Report given to KRISTEL Cardona.
--- NOTE | 2019-12-04 10:24 | NUR ---
PT IS C/O URINARY FRQUENCY, AND BURNING SENSATION AFTER URINATING FOR THE LAST 3 DAYS. PT IS AAOX4, DENIES ANY SOB, CHEST PAIN, ABDOMINAL PAIN, AND N/V.
--- NOTE | 2019-12-04 10:30 | NUR ---
DR VALENTINE IN TO ASSESS
--- NOTE | 2019-12-04 10:47 | NUR ---
BLOOD SEND TO LAB
[2019-12-04 10:49] LABS: BASOPHILS % (AUTO) 0.4 % (0.0-2.0); EOSINOPHILS # (AUTO) 0.2 K/uL (0.0-0.4); EOSINOPHILS % (AUTO) 2.8 % (0.0-4.0); HEMATOCRIT 42.3 % (36-48); HEMOGLOBIN 14.5 g/dL (12.0-16.0); LYMPHOCYTES # (AUTO) 1.8 K/uL (1.0-5.5); LYMPHOCYTES % (AUTO) 21.9 % (20.5-51.5); MEAN CORPUSCULAR HEMOGLOBIN 30 pg (27-31); MEAN CORPUSCULAR HGB CONC 34 % (32-36); MEAN CORPUSCULAR VOLUME 87 fL (79.0-98.0); MONOCYTES # (AUTO) 0.7 K/uL (0.0-1.0); MONOCYTES % (AUTO) 8.4 % (1.7-9.3); NEUTROPHILS # (AUTO) 5.3 K/uL (1.8-7.7); NEUTROPHILS % (AUTO) 66.5 % (40.0-70.0); PLATELET COUNT (AUTO) 163 K/uL (130-430); RED BLOOD CELL COUNT(AUTO) 4.85 MIL/uL (4.2-6.2); RED CELL DISTRIBUTION WIDTH 14.5 % (9.0-15.0)
[2019-12-04 11:05] LABS: ANION GAP 9 (5-15); CALCIUM 9.2 mg/dL (8.4-11.0); CHLORIDE 101 mmol/L (98-107); GLUCOSE 99 mg/dL (70-99); POTASSIUM 3.9 mmol/L (3.5-5.1); SODIUM SERUM 138 mmol/L (136-145); UREA NITROGEN, BLOOD 20 mg/dL (8-21)
[2019-12-04 11:10] LABS: ALANINE AMINOTRANSFERASE 21 U/L (12-78); ALBUMIN 4.2 g/dL (3.4-4.8); AMYLASE 79 U/L (0-100); ASPARTATE AMINOTRANSFERASE 20 U/L (10-37); LIPASE 119 U/L (73-393); TOTAL BILIRUBIN 0.4 mg/dL (0.0-1.0)
[2019-12-04 11:11] LABS: INR 1.4 (0.8-1.2); PROTHROMBIN TIME 14.1 SECS (9.5-12.5)
[2019-12-04 12:08] LABS: BILIRUBIN,URINE NEGATIVE (NEGATIVE); BLOOD, URINE NEGATIVE (NEGATIVE); CLARITY/URINE CLEAR (CLEAR); COLOR,URINE YELLOW (YELLOW); GLUCOSE,URINE NEGATIVE (NEGATIVE); KETONES,URINE NEGATIVE (NEGATIVE); LEUKOCYTE ESTERASE ,URINE NEGATIVE (NEGATIVE); NITRITE, URINE NEGATIVE (NEGATIVE); PROTEIN URINE NEGATIVE (NEGATIVE); UROBILINOGEN,URINE 0.2 (0.2-1.0)
[2019-12-04 12:38] VITALS: BP_SYST 121
--- NOTE | 2019-12-04 12:40 | NUR ---
Patient given written and verbal discharge instructions and verbalizes understanding. ER MD discussed with patient the results and treatment provided. Patient in stable condition. ID arm band removed. IV catheter removed intact and dressing applied, no active bleeding. Rx of PYRIDIUM given. Patient educated on pain management and to follow up with PMD. Pain Scale 0/10 Opportunity for questions provided and answered. Medication side effect fact sheet provided.
== END 2019-12-04 12:40 | disposition home or self-care (01) ==
LOC: SED 09:59
DX: R30.0 Dysuria (principal); I10 Essential (primary) hypertension; I48.91 Unspecified atrial fibrillation; F41.9 Anxiety disorder, unspecified; Z86.73 Personal history of transient ischemic attack (TIA), and cerebral infarction without residual deficits; Z79.899 Other long term (current) drug therapy
CPT/HCPCS: 36415; 80053; 81003; 82150-TC; 83605; 83690-TC; 85025; 85610-TC; 85730-TC; 99283

== ENCOUNTER 2020-08-20 16:46 | Emergency (ER) | payer MEDICARE ==
[~2020-08-20] VITALS: Ht 167.6 cm; Wt 59.4 kg
[~2020-08-20 16:46] MED LIST changes: +SERT-436 PO; -SERT50TA12 PO
[2020-08-20 16:59] VITALS: BP_SYST 159
--- NOTE | 2020-08-20 17:04 | NUR ---
Patient to ER bed 02 to gown for evaluation. Side rails up.
--- NOTE | 2020-08-20 17:30 | NUR ---
PT ARRIVES FROM [facility] FOR INCREASING ELANA EYE PAIN. PT DENIES ANY VISION LOSE. VISUAL ACUITY DONE
--- NOTE | 2020-08-20 17:45 | NUR ---
ER at bedside examining patient.
--- NOTE | 2020-08-20 18:00 | NUR ---
Patient transported to radiology via GURNEY, accompanied by DIE CAST DIE MAKER.
[2020-08-20 18:15] LABS: BASOPHILS % (AUTO) 0.3 % (0.0-2.0); EOSINOPHILS # (AUTO) 0.2 K/uL (0.0-0.4); HEMATOCRIT 39.9 % (36-48); HEMOGLOBIN 13.5 g/dL (12.0-16.0); LYMPHOCYTES # (AUTO) 1.8 K/uL (1.0-5.5); LYMPHOCYTES % (AUTO) 21.9 % (20.5-51.5); MEAN CORPUSCULAR HEMOGLOBIN 29 pg (27-31); MEAN CORPUSCULAR HGB CONC 34 % (32-36); MEAN CORPUSCULAR VOLUME 87 fL (79.0-98.0); MONOCYTES # (AUTO) 0.7 K/uL (0.0-1.0); MONOCYTES % (AUTO) 9.2 % (1.7-9.3); NEUTROPHILS # (AUTO) 5.4 K/uL (1.8-7.7); NEUTROPHILS % (AUTO) 66.6 % (40.0-70.0); PLATELET COUNT (AUTO) 154 K/uL (130-430); RED BLOOD CELL COUNT(AUTO) 4.59 MIL/uL (4.2-6.2); RED CELL DISTRIBUTION WIDTH 14.9 % (9.0-15.0); WHITE BLOOD COUNT (AUTO) 8.1 K/uL (4.8-10.8)
[2020-08-20 18:27] LABS: ANION GAP 10 (5-15); CALCIUM 8.7 mg/dL (8.4-11.0); CHLORIDE 104 mmol/L (98-107); CREATININE 0.89 mg/dL (0.55-1.30); GLUCOSE 101 mg/dL (70-99); POTASSIUM 3.5 mmol/L (3.5-5.1); SODIUM SERUM 140 mmol/L (136-145); UREA NITROGEN, BLOOD 12 mg/dL (8-21)
[2020-08-20 18:31] LABS: INR 1.2 (0.8-1.2)
[2020-08-20 18:33] LABS: ALANINE AMINOTRANSFERASE 13 U/L (12-78); ALBUMIN 3.6 g/dL (3.4-4.8); ASPARTATE AMINOTRANSFERASE 16 U/L (10-37); TOTAL BILIRUBIN 0.7 mg/dL (0.0-1.0)
--- NOTE | 2020-08-20 18:40 | NUR ---
VISUAL ACUITY DONE.PT WEARS GLASSES
--- NOTE | 2020-08-20 19:05 | NUR ---
CARE ENDORSED TO [facility] HUMPHRIES
--- NOTE | 2020-08-20 19:06 | NUR ---
Received endorsement from day shift, AAOX4, breathing spontaneously at room air, not in distress noted. With IV cannula g20 at right AC on saline lock noted.Vital signs stable.
--- NOTE | 2020-08-20 20:05 | NUR ---
To restroom ambulatory, assisted well, instructed to collect the urine and apparently the patient missed to collect the urine sample.
--- NOTE | 2020-08-20 21:25 | NUR ---
Ambulatory to restroom, voided freely and able to collect urine and sent to lab.
[2020-08-20 21:40] VITALS: BP_SYST 138
--- NOTE | 2020-08-20 21:40 | NUR ---
Patient given written and verbal discharge instructions and verbalizes understanding. ER MD discussed with patient the results and treatment provided. Patient in stable condition. ID arm band removed. IV catheter removed intact and dressing applied, no active bleeding. No Rx of given. Patient educated on pain management and to follow up with PMD. Pain Scale 0/10. Opportunity for questions provided and answered.
[2020-08-20 21:52] LABS: BILIRUBIN,URINE NEGATIVE (NEGATIVE); BLOOD, URINE NEGATIVE (NEGATIVE); CLARITY/URINE CLEAR (CLEAR); COLOR,URINE YELLOW (YELLOW); GLUCOSE,URINE NEGATIVE (NEGATIVE); KETONES,URINE NEGATIVE (NEGATIVE); LEUKOCYTE ESTERASE ,URINE NEGATIVE (NEGATIVE); NITRITE, URINE NEGATIVE (NEGATIVE); PROTEIN URINE NEGATIVE (NEGATIVE); UROBILINOGEN,URINE 0.2 (0.2-1.0)
== END 2020-08-20 21:40 | disposition home or self-care (01) ==
LOC: SED 16:46
DX: R51.9 Headache, unspecified (principal); R41.3 Other amnesia; F41.9 Anxiety disorder, unspecified; I10 Essential (primary) hypertension; I48.91 Unspecified atrial fibrillation; Z79.899 Other long term (current) drug therapy
CPT/HCPCS: 36415; 70450-TC; 76376; 80053; 80162; 81003; 84484; 85025; 85610-TC; 85730-TC; 93005; 99285